=== PATIENT | female | born 1950 | race Caucasian/White ===

== ENCOUNTER 2016-10-05 12:22 | Emergency (ER) | payer MEDICARE, BC ==
--- NOTE | 2016-10-05 13:25 | Emergency Department Record ---
History of Present Illness - General Chief Complaint: Ankle/Foot Injury Stated Complaint: R ANKLE INJURY Time Seen by Provider: 10/05/16 13:25 Source: Patient Mode of Arrival: Ambulatory Limitations: No limitations - History of Present Illness Initial Comments: The patient is here due to R foot and L knee pain. She jumped off an object and was about 3 feet in the air and landed on the R heel and L knee. She is mainly having R heel pain. She denies any other injuries. MD Complaint: Foot injury Onset/Timin -: Hour(s) - Related Data Home Medications Medication Instructions Recorded Confirmed Last Taken Losartan Potassium 100 mg PO DAILY 10/05/16 10/05/16 10/05/16 Verapamil HCl [Verapamil Sr] 120 mg PO BID 10/05/16 10/05/16 10/05/16 Previous Rx's Medication Instructions Recorded Ibuprofen [Motrin] 800 mg PO TID PRN #20 tab 10/05/16 Allergies Allergy/AdvReac Type Severity Reaction Status Date / Time Sulfa (Sulfonamide Allergy Severe RASH Verified 10/05/16 13:26 Antibiotics) codeine AdvReac Severe VOMITING Verified 10/05/16 13:26 Review of Systems Constitutional: Denies: Chills, Fever Eyes: Denies: Eye discharge ENT: Denies: Congestion Respiratory: Denies: Cough, Dyspnea Past Medical History - SOCIAL HISTORY Smoking Status: Never smoker Alcohol Use: None Drug Use: None - RESPIRATORY Hx Respiratory Disorders: No - CARDIOVASCULAR Hx Cardio Disorders: Yes Hx Hypertension: Yes - NEURO Hx Neuro Disorders: No - GI Hx GI Disorders: No - Hx Genitourinary Disorders: No - ENDOCRINE Hx Endocrine Disorders: No - MUSCULOSKELETAL Hx Musculoskeletal Disorders: No - PSYCH Hx Psych Problems: No - HEMATOLOGY/ONCOLOGY Hx Hematology/Oncology Disorders: No Family Medical History Any Significant Family History?: No Physical Exam - General General Appearance: Alert, Oriented x3, Cooperative, No acute distress - Head Head exam: Atraumatic, Normal inspection - Eye Eye exam: Normal appearance, PERRL - ENT Throat exam: Normal inspection. negative: Tonsillar erythema, Tonsillar exudate - Neck Neck exam: Normal inspection, Full ROM. negative: Tenderness - Extremities Extremities exam: Normal inspection, Full ROM, Tenderness (There is significant R calcaneus tenderness but no deformity. The L knee is also mildly tender anteriorly but with normal ROM.). negative: Joint swelling - Neurological Neurological exam: Abnormal gait, Alert. negative: Motor sensory deficit, Normal gait Course - Reevaluation(s) Reevaluation #1: The patient is doing well. I did explain the plan and neg xrays to her and the need for F/U. 10/05/16 15:03 Medical Decision Making - Data Complexity MDM Data: X-Ray Ordered and/or Reviewed - Radiology Data Radiology results: Report reviewed (L Knee and R Foot: Neg per Rad.) Disposition Disposition: Discharge Clinical Impression: Contusion, foot Qualifiers: Encounter type: initial encounter Laterality: right Qualified Code(s): S90.31XA - Contusion of right foot, initial encounter Disposition: Home, Self-Care Condition: (1) Good Instructions: Foot Contusion (ED) Additional Instructions: Please wear the walking boot and use the crutches for 5-7 days with no weight bearing on the R leg. Please take Motrin for pain. Please see your PCP if not better in 5 days. Prescriptions: Ibuprofen [Motrin] 800 mg PO TID PRN #20 tab PRN Reason: Pain Forms: Patient Portal Access Time of Disposition: 15:05
== END 2016-10-05 15:25 | disposition home or self-care (01) ==
LOC: ER 12:22
DX: S90.31XA Contusion of right foot, initial encounter (principal); M25.562 Pain in left knee; Y93.39 Activity, other involving climbing, rappelling and jumping off
CPT/HCPCS: 99283